=== PATIENT | male | born 1985 | race Caucasian/White ===

== ENCOUNTER 2021-02-04 11:18 | Emergency (ER) | payer OTHER ==
--- NOTE | 2021-02-04 11:39 | ERPHSYRPT ---
- History of Present Illness Time Seen by Provider: 02/04/21 11:34 Historian: patient Exam Limitations: no limitations Physician History: Pt is 35 year old male with Hx of endovascular epithelial Dx and microvascular CAD and spasm on Cath with acetycholine challenge test positive at [place] , [place], and [facility]. Normal reported EF at 54% last. Has had increasing pain in chest only lasting minutes for months and had negative GI workups. Today CP persisting 1 hour and not responding to Nitro. Chest clear, Abd nontender without peritoneal signs distension or masses. Ext without edema or erythema. no cough or fever but slight SOBreath. Timing/Duration: today, constant Activities at Onset: none Quality: fullness, pressure Location: substernal, central, shoulder Chest Pain Radiation: arm Severity of Pain-Max: moderate Severity of Pain-Current: moderate Associated Symptoms: shortness of breath, dizziness Prior Chest Pain/Cardiac Workup: angina, recently seen/treated Nitro Today/Relief: 0.4 mg x 1, no relief Aspirin Treatment Today: 81 mg x 4, provided at home, provided by ED Allergies/Adverse Reactions: amoxicillin Allergy (Verified 02/04/21 11:39) morphine Allergy (Verified 02/04/21 11:39) Penicillins Allergy (Verified 02/04/21 11:39) promethazine [From Phenergan] Allergy (Verified 02/04/21 11:39) Home Medications: Aspirin 81 gm Chew [Baby Aspirin 81 mg Chew] 81 mg PO DAILY 02/04/21 [History] Nitroglycerin 0.2 mg/Hr [Nitro-Dur 0.2 mg/Hr] 0.2 mg TD DAILY 02/04/21 [History] Ramipril 1.25 mg [Altace 1.25 MG] 1.25 mg PO DAILY 02/04/21 [History] Ranolazine 500 MG [Ranexa 500 MG] 500 mg PO BID 02/04/21 [History] Rosuvastatin Calcium [Crestor] 40 mg PO DAILY 02/04/21 [History] dilTIAZem HCL [Diltiazem ER] 240 mg PO DAILY 02/04/21 [History] - Review of Systems Constitutional: No Fever, No Chills Eyes: No Symptoms Ears, Nose, & Throat: No Symptoms Respiratory: Dyspnea, No Cough Cardiac: Chest Pain, No Edema, No Syncope Abdominal/Gastrointestinal: No Abdominal Pain, No Nausea, No Vomiting, No Diarrhea Genitourinary Symptoms: No Dysuria Musculoskeletal: No Back Pain, No Neck Pain Skin: No Rash Neurological: No Dizziness, No Focal Weakness, No Sensory Changes Psychological: No Symptoms Endocrine: No Symptoms Hematologic/Lymphatic: No Symptoms Immunological/Allergic: No Symptoms All Other Systems: Reviewed and Negative - Past Medical History Pertinent Past Medical History: Yes Cardiac History: Coronary Artery Disease - Nursing Vital Signs Nursing Vital Signs: Initial Vital Signs Temperature 97.6 F 02/04/21 11:19 Pulse Rate 74 02/04/21 11:19 Respiratory Rate 14 02/04/21 11:19 Blood Pressure 131/75 02/04/21 11:19 O2 Sat by Pulse Oximetry 100 02/04/21 11:19 Pain Scale Pain Intensity 3 - Physical Exam General Appearance: no apparent distress, alert Eye Exam: PERRL/EOMI, eyes nml inspection Ears, Nose, Throat Exam: normal ENT inspection, moist mucous membranes Neck Exam: normal inspection, non-tender, supple, full range of motion Respiratory Exam: normal breath sounds, lungs clear, No respiratory distress Cardiovascular Exam: regular rate/rhythm, normal heart sounds Gastrointestinal/Abdomen Exam: soft, No tenderness, No mass Rectal Exam: deferred Back Exam: normal inspection, No CVA tenderness, No vertebral tenderness Extremity Exam: normal inspection, normal range of motion Neurologic Exam: alert, oriented x 3, cooperative, normal mood/affect, sensation nml, No motor deficits Skin Exam: normal color, warm, dry SpO2 Interpretation: normal SpO2: 100 O2 Delivery: Room Air - Course Nursing assessment & vital signs reviewed: Yes EKG Interpreted by Me: NORMAL AXIS, NORMAL INTERVALS, NORMAL QRS, Non-specific ST Changes - Radiology Exams Chest X-ray Interpretation: Reviewed by me, No Pneumothorax, No Infiltrates, Other (no acute Disease) Ordered Tests: Active Orders 24 hr Category Date Time Status [employer] Operator STAT Care 02/04/21 11:42 Active EKG-ER Only STAT Care 02/04/21 11:40 Active CHEST 1 VIEW (PORTABLE) Stat Exams 02/04/21 11:41 Completed CBC W DIFF Stat Lab 02/04/21 11:35 Completed CMP Stat Lab 02/04/21 11:35 Completed D-DIMER QUANTITATIVE Stat Lab 02/04/21 11:35 Completed LIPASE Stat Lab 02/04/21 11:35 Completed NT PRO BNP Stat Lab 02/04/21 11:35 Completed TROPONIN Q3H Lab 02/04/21 11:35 Completed TROPONIN Q3H Lab 02/04/21 14:30 Received TROPONIN Q3H Lab 02/04/21 17:45 Ordered TROPONIN Q3H Lab 02/04/21 20:45 Ordered TROPONIN Q3H Lab 02/04/21 23:45 Ordered Medication Summary Generic Name Dose Route Start Last Admin Trade Name Freq PRN Reason Stop Dose Admin Sodium Chloride 1,000 mls @ 100 mls/hr 02/04/21 11:45 02/04/21 11:53 Sodium Chloride 0.9% 1000 Ml IV 03/06/21 11:44 100 mls/hr .Q10H ENOC Administration Discontinued Medications Generic Name Dose Route Start Last Admin Trade Name Freq PRN Reason Stop Dose Admin Aspirin 243 mg 02/04/21 11:58 02/04/21 12:00 Aspirin 81 Mg Tab.Chew PO 02/04/21 11:59 243 mg STAT ONE Administration Famotidine 20 mg 02/04/21 11:40 02/04/21 11:53 Famotidine 20 Mg/1 Vial IV 02/04/21 11:41 20 mg STAT ONE Administration Famotidine Confirm 02/04/21 11:51 Famotidine 20 Mg/1 Vial Administered 02/04/21 11:52 Dose 20 mg IV .STK-MED ONE Nitroglycerin 0.4 mg 02/04/21 11:40 02/04/21 11:53 Nitroglycerin 0.4 Mg (Ed) 0.4 Mg Tab.Subl SL 02/04/21 11:41 0.4 mg STAT ONE Administration Nitroglycerin Confirm 02/04/21 11:51 Nitroglycerin 0.4 Mg (Ed) 0.4 Mg Tab.Subl Administered 02/04/21 11:52 Dose 0.4 mg SL .STK-MED ONE Nitroglycerin 1 gm 02/04/21 12:16 02/04/21 12:25 Nitroglycerin 1 Gm Packet TOP 02/04/21 12:17 1 gm STAT ONE Administration Nitroglycerin Confirm 02/04/21 12:25 Nitroglycerin 1 Gm Packet Administered 02/04/21 12:26 Dose 1 gm .ROUTE .STK-MED ONE Pantoprazole Sodium 40 mg 02/04/21 11:40 02/04/21 11:53 Pantoprazole 40 Mg Vial IV 02/04/21 11:41 40 mg STAT ONE Administration Pantoprazole Sodium Confirm 02/04/21 11:51 Pantoprazole 40 Mg Vial Administered 02/04/21 11:52 Dose 40 mg IV .STK-MED ONE Lab/Rad Data: Laboratory Result Diagrams 02/04/21 11:35 02/04/21 11:35 Laboratory Results 02/04/21 02/04/21 02/04/21 Range/Units 11:35 11:35 11:35 WBC (4.0-10.5) K/mm3 RBC (4.1-5.6) M/mm3 Hgb (12.5-18.0) gm/dl Hct (42-50) % MCV (78-100) fl MCH (26-32) pg MCHC (32-36) g/dl RDW (11.5-14.0) % Plt Count (150-450) K/mm3 MPV (7.5-11.0) fl Gran % (36.0-66.0) % Eos # (Auto) (0-0.5) Absolute Lymphs (auto) (1.0-4.6) Absolute Monos (auto) (0.0-1.3) Lymphocytes % (24.0-44.0) % Monocytes % (0.0-12.0) % Eosinophils % (0.00-5.0) % Basophils % (0.0-0.4) % Absolute Granulocytes (1.4-6.9) Basophils # (0-0.4) D-Dimer 305 (215-500) ng/mL Sodium 135 L (137-145) mmol/L Potassium 4.3 (3.5-5.1) mmol/L Chloride 99 (98-107) mmol/L Carbon Dioxide 27 (22-30) mmol/L Anion Gap 13.3 (5-15) MEQ/L BUN 16 (9-20) mg/dL Creatinine 0.96 (0.66-1.25) mg/dL Estimated GFR > 60.0 ML/MIN Glucose 88 (74-106) mg/dL Calcium 9.8 (8.4-10.2) mg/dL Total Bilirubin 0.40 (0.2-1.3) mg/dL AST 46 (17-59) U/L ALT 77 H (0-50) U/L Alkaline Phosphatase 59 (38-126) U/L Troponin I < 0.012 (0.000-0.034) ng/mL NT-Pro-B Natriuret Pep 63.6 (0-450) pg/mL Serum Total Protein 7.8 (6.3-8.2) g/dL Albumin 4.7 (3.5-5.0) g/dL Lipase 76 (23-300) U/L 02/04/21 Range/Units 11:35 WBC 5.5 (4.0-10.5) K/mm3 RBC 4.05 L (4.1-5.6) M/mm3 Hgb 11.1 L (12.5-18.0) gm/dl Hct 35.2 L (42-50) % MCV 86.9 (78-100) fl MCH 27.4 (26-32) pg MCHC 31.5 L (32-36) g/dl RDW 16.0 H (11.5-14.0) % Plt Count 254 (150-450) K/mm3 MPV 11.6 H (7.5-11.0) fl Gran % 65.4 (36.0-66.0) % Eos # (Auto) 0.06 (0-0.5) Absolute Lymphs (auto) 1.17 (1.0-4.6) Absolute Monos (auto) 0.63 (0.0-1.3) Lymphocytes % 21.5 L (24.0-44.0) % Monocytes % 11.6 (0.0-12.0) % Eosinophils % 1.1 (0.00-5.0) % Basophils % 0.4 (0.0-0.4) % Absolute Granulocytes 3.57 (1.4-6.9) Basophils # 0.02 (0-0.4) D-Dimer (215-500) ng/mL Sodium (137-145) mmol/L Potassium (3.5-5.1) mmol/L Chloride (98-107) mmol/L Carbon Dioxide (22-30) mmol/L Anion Gap (5-15) MEQ/L BUN (9-20) mg/dL Creatinine (0.66-1.25) mg/dL Estimated GFR ML/MIN Glucose (74-106) mg/dL Calcium (8.4-10.2) mg/dL Total Bilirubin (0.2-1.3) mg/dL AST (17-59) U/L ALT (0-50) U/L Alkaline Phosphatase (38-126) U/L Troponin I (0.000-0.034) ng/mL NT-Pro-B Natriuret Pep (0-450) pg/mL Serum Total Protein (6.3-8.2) g/dL Albumin (3.5-5.0) g/dL Lipase (23-300) U/L - Progress Progress: improved, re-examined Air Movement: good Progress Note: 02/04/21 12:15 slight improvement with NTG in ED. Will try Paste, he states drip didnot help previously. 02/04/21 13:07 Chest pain improved some more with nitro paste. discussed with pt and he wishes to be transferred to [facility] to cardiology care and monitoring. 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 02/04/21 14:[address] Guzman agreed to consult, but [facility] declined due to being full. Now contacting [facility] where Dr. Guzman also consults. 02/04/21 14:[address] Gentile hospitalist who accepted at [facility]. 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
[2021-02-04] MEDS ORDERED: Nitrostat 0.4 MG (ED) SL ONE ×2 (11:40→11:51)
[2021-02-04] MEDS ORDERED: PROTONIX 40 MG IV IV ONE ×2 (11:40→11:51)
[2021-02-04] MEDS ORDERED: Pepcid 20 MG VIAL IV ONE ×2 (11:40→11:51)
[2021-02-04] MEDS ORDERED: Sodium Chloride 0.9% 1000 ML 1,000 ML IV SCH ×2 (11:45→15:45)
[2021-02-04] MEDS ORDERED: Sodium Chloride 0.9% 1000 ML 1,000 ML ONE (11:51)
[2021-02-04 11:55] LABS: Absolute Neutrophil Ct (ANC) 3.57 (1.4-6.9); BASOPHIL % 0.4 % (0.0-0.4); Basophil (Absolute #) 0.02 (0-0.4); Eosinophil % 1.1 % (0.00-5.0); Eosinophil (Absolute #) 0.06 (0-0.5); Hematocrit 35.2 % (42-50); Hemoglobin 11.1 gm/dl (12.5-18.0); Lymphocyte (Absolute #) 1.17 (1.0-4.6); Lymphocytes % 21.5 % (24.0-44.0); Mean Cell Volume 86.9 fl (78-100); Mean Corpuscular Hemoglobin 27.4 pg (26-32); Mean Corpuscular Hgb Concent. 31.5 g/dl (32-36); Mean Platelet Volume 11.6 fl (7.5-11.0); Monocyte (Absolute #) 0.63 (0.0-1.3); Monocytes % 11.6 % (0.0-12.0); Neutrophil % 65.4 % (36.0-66.0); Platelet Count 254 K/mm3 (150-450); Red Blood Count 4.05 M/mm3 (4.1-5.6); White Blood Count 5.5 K/mm3 (4.0-10.5)
[2021-02-04] MEDS ORDERED: BABY ASPIRIN 81 MG CHEW PO ONE (11:58)
--- NOTE | 2021-02-04 12:05 | XRAY ---
Indication: Chest pain and short of breath. Comparison: None Portable chest hyperinflated and clear. Heart and mediastinal structures within normal limits. Bony thorax intact. Impression: Nonacute hyperinflated chest.
[2021-02-04 12:07] LABS: CHLORIDE 99 mmol/L (98-107)
[2021-02-04 12:14] LABS: ALBUMIN 4.7 g/dL (3.5-5.0); ALKALINE PHOSPHATASE 59 U/L (38-126); BLOOD UREA NITROGEN 16 mg/dL (9-20); Calcium 9.8 mg/dL (8.4-10.2); Carbon Dioxide 27 mmol/L (22-30); Creatinine 1 0.96 mg/dL (0.66-1.25); EST GLOMERULAR FILTRATION RATE > 60.0 ML/MIN; Glucose 88 mg/dL (74-106); LIPASE 76 U/L (23-300); NT PRO BNP 63.6 pg/mL (0-450); Potassium 4.3 mmol/L (3.5-5.1); SGOT/AST 46 U/L (17-59); SGPT/ALT 77 U/L (0-50); SODIUM 135 mmol/L (137-145); Total Protein 7.8 g/dL (6.3-8.2)
[2021-02-04] MEDS ORDERED: NITRO-BID 2% UD PACKETS TOP ONE (12:16)
[2021-02-04 12:20] LABS: ANION GAP 13.3 MEQ/L (5-15)
[2021-02-04] MEDS ORDERED: NITRO-BID 2% UD PACKETS ONE (12:25)
[2021-02-04 15:26] VITALS: PULSE 70; O2SAT 98
[2021-02-04 16:29] VITALS: BP 105/65
== END 2021-02-04 16:42 | disposition left against medical advice (07) ==
LOC: ED 11:18
DX: I25.119 Atherosclerotic heart disease of native coronary artery with unspecified angina pectoris (principal); Z79.82 Long term (current) use of aspirin
CPT/HCPCS: 36415; 71045; 80053; 83690; 83880; 84484; 85025; 85379; 93005; 93041; 96374; 96375; 99284; A9270-GY